=== PATIENT | male | born 1940 | race Caucasian/White ===

== ENCOUNTER 2024-01-06 19:16 | Emergency (ER) | payer MEDICARE ==
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
[2024-01-06] MEDS ORDERED: TYLENOL 325 MG ONE (20:19)
[2024-01-06] MEDS ORDERED: Sodium Chloride 0.9% 1000 ML 1,000 ML ONE ×2 (20:19→23:01)
[2024-01-06] MEDS: TYLENOL 325 MG PO STA (20:21)
[2024-01-06] MEDS: Sodium Chloride 0.9% 1000 ML 1,000 ML IV STA (20:21)
[2024-01-06 20:36] VITALS: TEMP 97.5
[2024-01-06 20:48] LABS: Absolute Neutrophil Ct (ANC) 13.68 x10^3/uL (1.78-5.38); BASOPHIL % 0.1 % (0.2-1.2); Basophil (Absolute #) 0.02 x10^3/uL (0.01-0.08); Eosinophil (Absolute #) 0 x10^3/uL (0.04-0.54); Hematocrit 40.1 % (40.1-51.0); Hemoglobin 13.8 g/dL (13.7-17.5); IMMATURE GRAN # 0.08 x10^3u/L (0.001-0.031); IMMATURE GRAN % 0.5 % (0.001-0.429); Lymphocyte (Absolute #) 0.79 x10^3/uL (1.32-3.57); Lymphocytes % 5.1 % (21.8-53.1); Mean Corpuscular Hemoglobin 28.6 pg (25.7-32.2); Mean Corpuscular Hgb Concent. 34.4 g/dL (32.3-36.5); Mean Platelet Volume 8.4 fL (9.4-12.4); Monocyte (Absolute #) 0.87 x10^3/uL (0.30-0.82); Monocytes % 5.6 % (5.3-12.2); Neutrophil % 88.7 % (34.0-67.9); Platelet Count 778 x10^3/uL (163-337); Red Blood Count 4.83 x10^6/uL (4.63-6.08); Red Cell Distribution Width 12.9 % (11.6-14.4); White Blood Count 15.4 x10^3/uL (4.23-9.07)
[2024-01-06 21:01] LABS: ALBUMIN 4.1 g/dL (3.5-5.0); ANION GAP 20.4 MEQ/L (5-15); BILIRUBIN,TOTAL 1.2 mg/dL (0.2-1.3); Creatinine 1 1.33 mg/dL (0.66-1.25); EST GLOMERULAR FILTRATION RATE 53.4 ML/MIN; Total Protein 8.2 g/dL (6.3-8.2)
[2024-01-06 21:08] LABS: Appearance Turbid (Clear); Bacteria Many /HPF (None Seen); Bilirubin Negative (Negative); Blood Large (Negative); Epithelial Cells Rare /HPF (None Seen); Glucose, Urine Negative (Negative); Hyaline Casts None Seen /LPF (0-2); Ketones Trace (Negative); Leukocyte Esterase Large (Negative); Nitrite Negative (Negative); Ph 5.5 (4.6-8.0); Protein,Urine Dip 300 (Negative); Specific Gravity 1.015 (1.005-1.030); Urobilinogen 0.2 mg/dL (0.2); WBC >100 /HPF (0-5)
[2024-01-06 21:09] LABS: ADD URINE CULTURE? YES (NO)
[2024-01-06 21:10] LABS: Calcium 12.4 mg/dL (8.4-10.2); Potassium 6.8 mmol/L (3.5-5.1)
[2024-01-06] MEDS ORDERED: PIPERACILLIN/TAZOBACTAM IV ONE (21:23)
[2024-01-06] MEDS ORDERED: Sodium Chloride 100ML MINI-BAG PLUS 100 ML IV ONE (21:24)
[2024-01-06] MEDS: PIPERACILLIN/TAZOBACTAM 3.375 GM in Sodium Chloride 100ML MINI-BAG PLUS 100 ML IV ONE (21:25)
[2024-01-06] MEDS ORDERED: PROVENTIL Solution 2.5 MG/0.5 ML IH ONE (21:26)
[2024-01-06] MEDS: PROVENTIL 2.5 MG/3 ML NEB IH ONE (21:26)
[2024-01-06 21:27] LABS: INFLUENZA A NEGATIVE (NEGATIVE); INFLUENZA B NEGATIVE (NEGATIVE); RESPIRATORY SYNCTIAL VIRUS NEGATIVE (NEGATIVE); SARS-CoV-2 Xpert Express NEGATIVE (NEGATIVE)
[2024-01-06] MEDS ORDERED: HUMULIN R ONE (21:59)
[2024-01-06] MEDS ORDERED: Calcium Gluconate 10% 1000 MG IV ONE (21:59)
[2024-01-06] MEDS ORDERED: D50W 50 ml Abboject IV ONE (22:00)
[2024-01-06] MEDS: Calcium Gluconate 10% 1000 MG IV ONE (22:02)
[2024-01-06] MEDS: D50W 50 ml Abboject IV ONE (22:02)
[2024-01-06] MEDS: HUMULIN R IV ONE (22:03)
--- NOTE | 2024-01-06 22:15 | XRAY ---
CLINICAL HISTORY: FLYNN, neck pain COMPARISON: None. TECHNIQUE: Axial noncontrast CT scan of the brain was performed from the skull base to the high parietal region. Coronal and Sagittal reformat were obtained. One of the following dose reduction techniques was utilized for this exam: Automated exposure control, adjustment of the mA and/or kV according to patient size, and use of iterative reconstruction. FINDINGS: There are tiny ill-defined [id number] areas noted in the subcortical and periventricular white matter bilaterally, suggestive of microvascular ischemic changes. The ventricular system, cortical sulci, and basal cisterns are prominent and consistent with senile changes. The visualized brain parenchyma shows a normal appearance. Normal CT appearance of the posterior fossa structures namely the cerebellar hemispheres, brainstem, and cerebellar peduncles. The IACs are unremarkable. The cerebello-pontine angles are clear. The osseous structures in the skull base are unremarkable. No definite calvarium fractures. Mucosal thickening of the sphenoid sinus is seen Bilateral mastoid air cells appear unremarkable. IMPRESSION: 1. No significant acute abnormality was detected in the plain CT head. 2. Chronic microvascular ischemic changes and senile cortical atrophy. Electronically Signed by: Ar Orantes MD. (01/06/2024 22:11:02 EDT)
[2024-01-06 22:22] LABS: Calcium 10.8 mg/dL (8.4-10.2); Creatinine 1 1.39 mg/dL (0.66-1.25); EST GLOMERULAR FILTRATION RATE 50.6 ML/MIN; Potassium 5.7 mmol/L (3.5-5.1)
--- NOTE | 2024-01-06 22:43 | XRAY ---
CLINICAL HISTORY: back pain COMPARISON: None. TECHNIQUE: Multiple axial images of CT thoracic spine without contrast were submitted in bone and soft tissue windows. One of the following dose reduction techniques was utilized for this exam: Automated exposure control, adjustment of the mA and/or kV according to patient size, and use of iterative reconstruction. FINDINGS: Diffuse osteopaenic changes noted. Maintained curvature of the thoracic spine is seen. Multilevel osteophytes and Schmorl's nodes were noted. Maintained vertebral body height and alignment are seen. Intact intervertebral disc spaces. No paravertebral soft tissue swelling is seen. Incidental fibrocalcific lesions were seen in the right apex, sequelae to the previous infection. Old calcified granuloma is seen in the spleen. A 3 mm calculus in the upper calyx of the left kidney. IMPRESSION: Mild to moderate thoracic spondylosis. Electronically Signed by: Ar Orantes MD. (01/06/2024 22:38:39 EDT)
--- NOTE | 2024-01-06 22:45 | XRAY ---
CLINICAL HISTORY: neck pain COMPARISON: None. TECHNIQUE: Thin axial CT of the cervical spine was performed with sagittal and coronal reconstructions without contrast. One of the following dose reduction techniques was utilized for this exam: Automated exposure control, adjustment of the mA and/or kV according to patient size, and use of iterative reconstruction. FINDINGS: Multiple tiny air foci are seen in the spinal canal, left foramen transversarium, and soft tissues of the neck, the possibility of infective etiology appears likely. Recommended contrast-enhanced MR imaging of the neck for better evaluation. Lucent lesions with sclerotic margins are seen in the dens of the C2 vertebral body with thickening of the posterior longitudinal ligament and ossification seen at the C2 level. 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 There is maintained cervical lordotic curvature. Grade I minimal anterolisthesis of C4 over C5 vertebra is noted. Multilevel anterior and posterior osteophytes, uncovertebral joint hypertrophy, and facet arthropathy were noted. Multilevel disc osteophyte complexes and facet arthropathy resulting in neural foramina narrowing. MR is advised for further evaluation. The vertebral bodies are normal in height. The craniovertebral measures are unremarkable. Intervertebral disc spaces: Mild reduction in height of intervertebral disc spaces between C3-C4 and C7-T1 levels noted. vacuum phenomena were also noted. The paravertebral spaces appear normal. No abnormality was detected in the prevertebral region. IMPRESSION: 1. Multiple tiny air foci in the spinal canal left foramen transversarium and soft tissues of the neck, the possibility of infective or degenerative etiology likely. Recommended contrast-enhanced MR imaging If clinically indicated. 2. Lucent lesions with sclerotic margins in dens of C2 vertebral body with thickening of posterior longitudinal ligament and ossification seen at C2 level. 3. Mild to moderate cervical spondylosis with multilevel disc osteophyte complexes and facet arthropathy resulting in neural foramina narrowing. MR is advised for further evaluation. [facility] ER was called at [phone] on 09:35 PM [employer], 01/06/[address] Michelle Miller was informed regarding Important medical findings. Electronically Signed by: Ar Orantes MD. (01/06/2024 22:40:49 EDT)
[2024-01-06] MEDS: Sodium Chloride 0.9% 1000 ML 1,000 ML IV SCH (23:01)
--- NOTE | 2024-01-07 01:55 | XRAY ---
CLINICAL HISTORY: r/o kidney stone COMPARISON: None. TECHNIQUE: Multiple axial sections of abdomen and pelvis were acquired without intravenous contrast administration. Sagittal and coronal reformatted images were obtained.One of the following dose reduction techniques was utilized for this exam.Automated exposure control, adjustment of the mA and/or kV according to patient size, and use of iterative reconstruction. FINDINGS: Mosaci perfusion is noted in both lunhs. Normal size live showing homogenous enhancement. No focal or diffuse abnormality is noted. No intrahepatic duct dilatation is noted. A few tiny parenchymal ecacific foci/granuloma is noted. Optimally distended gall bladder. No radiodense calculus. CBD is normal measuring 6mm. The pancreas, spleen and both adrenal glands are normal. Multiple tiny foci of calcification/granuloma is seen in the spleen. Both kidney are normal in size, location and axis. Two 1-2mm non obstructing calculus is seen at interpolar region of left kidney. Mild hydronephrosis is noted in both kidneys likely due to overdistended urinary bladder. Distended urinary bladder with thickened wall. Maximum wall thickness at its right lateral wall measuring 8 mm. The distal ureters are not well-visualized, due to over distended bladder and lack of contrast. Multiple calcifications are seen in pelvis which likely appear to be phleboliths. Possibility of ureteric calculus cannot be excluded. Mildly enlarged prostate measuring 5.4 x 4.8 cm. The stomach and distal esophagus appeared unremarkable. Small bowel loops are grossly normal. No acute bowel obstruction or ileus. Appendix is not discretely identified. Moderate colonic stool volume in the rectum. Diffuse atherosclerotic calcification of aorta is noted. No free fluid or free intraperitoneal air is seen. No evidence of enlarged mesenteric lymphadenopathy. Fluid-filled right inguinal hernia. Reduced bone mineralization. Advanced degenerative changes with altered femoral-head contour noted at left hip joint. Mild degenerative changes at right hip joint seen. Moderate degenerative changes in lower spine is seen with grade 1 retrolisthesis at L4-L5. IMPRESSION: 1. Over distended thick-walled urinary bladder with maximum wall thickness at its right lateral wall measuring 8 mm. Please correlate clinically. 2. Mild hydronephrosis is noted in both kidneys likely due to over distended urinary bladder. 3. Nonobstructing left renal calculi. 4. Rest of the findings as described. Electronically Signed by: Ar Orantes MD. (01/07/2024 01:51:26 EDT)
[2024-01-07 02:51] LABS: ANION GAP 13.6 MEQ/L (5-15); Calcium 10.7 mg/dL (8.4-10.2); Creatinine 1 1.39 mg/dL (0.66-1.25); EST GLOMERULAR FILTRATION RATE 50.6 ML/MIN; Potassium 5.9 mmol/L (3.5-5.1)
[2024-01-07] MEDS ORDERED: MORPHINE SULFATE 2 MG INJ ONE (03:05)
[2024-01-07] MEDS: MORPHINE SULFATE 2 MG INJ IV ONE (03:06)
[2024-01-07] MEDS ORDERED: HUMULIN R ONE (05:44)
[2024-01-07] MEDS ORDERED: D50W 50 ml Abboject IV ONE (05:44)
[2024-01-07] MEDS: HUMULIN R IV ONE (05:45)
[2024-01-07] MEDS: D50W 50 ml Abboject IV ONE (05:45)
[2024-01-07] MEDS ORDERED: PROVENTIL 2.5 MG/3 ML NEB IH ONE (05:48)
[2024-01-07] MEDS: PROVENTIL 2.5 MG/3 ML NEB IH ONE (05:57)
[2024-01-07 06:55] VITALS: O2SAT 98
[2024-01-07 07:01] VITALS: BP 101/54; PULSE 67; RESP 19
== END 2024-01-07 07:29 | disposition short-term general hospital (02) ==
LOC: ED 19:16
DX: A41.9 Sepsis, unspecified organism (principal); N30.01 Acute cystitis with hematuria; E87.5 Hyperkalemia; E87.1 Hypo-osmolality and hyponatremia; M54.2 Cervicalgia; M54.6 Pain in thoracic spine; R51.9 Headache, unspecified; I10 Essential (primary) hypertension; Z79.899 Other long term (current) drug therapy
CPT/HCPCS: 0241U; 36000; 36415; 70450; 72125; 72128; 74176; 80048; 80053; 81001; 83605; 84484; 85025; 87040; 87086; 94640; 96365; 96374; 96375; 99285; J0612; J1815; J2270; J7609; A9270-GY